=== PATIENT | male | born 1990 | race Caucasian/White ===

== ENCOUNTER 2024-05-14 12:01 | Inpatient (IN) | payer OTHER ==
[2024-05-14 12:23] VITALS: BMI 25.8
[2024-05-14] MEDS ORDERED: POLYETHYLENE GLYCOL (HEALTHYLAX) 3350 17 GM PACKET PO PRN (12:50)
[2024-05-14] MEDS ORDERED: ACETAMINOPHEN 325 MG TABLET (FP) PO PRN (12:50)
[2024-05-14] MEDS ORDERED: MAGNESIUM HYDROX 2400MG/30ML ORAL SUSPENSION 30 ML CUP PO PRN (12:50)
[2024-05-14] MEDS ORDERED: LOPERAMIDE HCL 2 MG CAPSULE PO PRN (12:50)
[2024-05-14] MEDS ORDERED: BENZOCAINE/MENTHOL (CHLORASEPTIC ) LOZENGE MM PRN (12:50)
[2024-05-14] MEDS ORDERED: NALOXONE HCL 0.4 MG/ML VIAL IM PRN (12:50)
[2024-05-14] MEDS ORDERED: BENZONATATE 200 MG CAPSULE PO PRN (12:50)
[2024-05-14] MEDS ORDERED: guaiFENesin 600 MG TABLET.ER (FP) PO PRN (12:50)
[2024-05-14] MEDS ORDERED: NALOXONE (NARCAN) HCL 4 MG/0.1 ML SPRAY NS PRN (12:50)
[2024-05-14] MEDS ORDERED: DOCUSATE SODIUM 100 MG CAPSULE (FP) PO PRN (12:50)
[2024-05-14] MEDS ORDERED: MAG HYDROX/AL HYDROX/SIMETH 30 ML UNIT-DOSE CUP PO PRN (12:50)
[2024-05-14] MEDS: MELATONIN 5 MG TABLETS PO SCH (21:37)
[2024-05-14] MEDS: THIAMINE 100 MG TABLET PO SCH (21:37)
[2024-05-15] MEDS: methaDONE 80 MG, methaDONE 10 MG PO SCH (07:10)
[2024-05-15] MEDS: methaDONE HCL 10 MG TABLET PO SCH (07:13)
[2024-05-15] MEDS: NICOTINE 7 MG/24 HOURS TOPICAL PATCH TD SCH (09:38)
[2024-05-15] MEDS: PRENATAL VITAMINS W/ FOLIC ACID TABLET (FP) PO SCH (09:38)
[2024-05-15 11:53] LABS: HEMATOCRIT 40.4 % (35.4-49); HEMOGLOBIN 13.4 GM/dL (11.7-16.9); MCH 27.5 pg (25.7-33.7); MCHC 33.3 g/dl (32.0-35.9); MEAN CELL VOLUME 82.5 fl (80-96); MEAN PLT VOLUME 7.5 fl (7.5-11.1); PLATELET COUNT 398 10^3/uL (134-434); RBC 4.89 M/mm3 (4.00-5.60); RDW 14.3 % (11.9-15.9); WHITE BLOOD COUNT 6.7 K/mm3 (4.0-10.0)
[2024-05-15 11:55] LABS: POTASSIUM 4.6 mmol/L (3.5-5.1)
[2024-05-15 12:01] LABS: ALBUMIN 3.2 g/dl (3.4-5.0); BLOOD UREA NITROGEN 13.7 mg/dL (7-18)
[2024-05-15 12:06] LABS: BILIRUBIN,TOTAL 0.3 mg/dL (0.2-1); TOT PROT 6.6 g/dl (6.4-8.2)
[2024-05-15] MEDS: GABAPENTIN 100 MG CAPSULE PO SCH (15:26)
[2024-05-15 16:22] LABS: EPI CELLS 30 /uL (0-25.1); HYALINE CASTS 3 /uL (0-3.1); URINE APPEARANCE CLEAR; URINE BACTERIA 389 /uL (0-1359); URINE BILIRUBIN NEGATIVE (NEGATIVE); URINE COLOR YELLOW; URINE GLUCOSE (UA) NEGATIVE (NEGATIVE); URINE KETONE NEGATIVE (NEGATIVE); URINE LEUK ESTERASE 1+ (NEGATIVE); URINE NITRITE NEGATIVE (NEGATIVE); URINE PROTEIN NEGATIVE (NEGATIVE); URINE RBC 4 /uL (0-23.9); URINE WBC 31 /uL (0-25.8)
[2024-05-15] MEDS: traZODone HCL 50 MG TABLET (FP) PO SCH (21:17)
[2024-05-15 23:45] LABS: SYPHILIS W/ RPR CONF NON-REACTIVE (NONREACTIVE)
[2024-05-16] MEDS: NICOTINE POLACRILEX 2 MG GUM BUC PRN (14:00)
[2024-05-16] MEDS ORDERED: ALBUTEROL SO4 HFA INHALER IH PRN (16:21)
[2024-05-16] MEDS: BACLOFEN 10 MG TABLET (FP) PO SCH (21:17)
[2024-05-16] MEDS: BUDESONIDE/FORMETEROL FUMARATE 160/4.5 mcg INHALER IH SCH (21:55)
[2024-05-17] MEDS: BACLOFEN 10 MG TABLET (FP) PO SCH (13:43)
[2024-05-19] MEDS ORDERED: methaDONE HCL 40 MG DISPERSABLE TABLET PO SCH (11:08)
[2024-05-19] MEDS: CLINDAMYCIN PHOSPHATE 1% TOPICAL GEL 30 GM TUBE TP SCH (11:42)
[2024-05-20] MEDS: hydrOXYzine PAMOATE 25 MG CAPSULE (FP) PO PRN (10:25)
[2024-05-20] MEDS: QUEtiapine FUMARATE 50 MG TABLET PO SCH (21:12)
[2024-05-22] MEDS: BUDESONIDE/FORMETEROL FUMARATE 160/4.5 mcg INHALER IH SCH (12:09)
[2024-05-22] MEDS: NICOTINE POLACRILEX 4 MG GUM BUC PRN (12:49)
[2024-05-22] MEDS: BACLOFEN 10 MG TABLET (FP) PO SCH (13:22)
[2024-05-22] MEDS: AMOX TR/POT CLAV 500MG/125MG TABLETS (FP) PO SCH (16:35)
[2024-05-22] MEDS: QUEtiapine FUMARATE 100 MG TABLET (FP) PO SCH (21:22)
[2024-05-23] MEDS: NICOTINE 21 MG/24 HOURS TOPICAL PATCH TD SCH (10:42)
[2024-05-23] MEDS: BACLOFEN 10 MG TABLET (FP) PO SCH (10:43)
[2024-05-24] MEDS: IBUPROFEN 400 MG TABLET (FP) PO PRN (06:32)
[2024-05-24] MEDS: IBUPROFEN 600 MG TABLET (FP) PO PRN (11:34)
[2024-05-27] MEDS: GABAPENTIN 300 MG CAPSULE PO SCH (14:09)
[2024-05-27] MEDS: QUEtiapine FUMARATE 50 MG TABLET PO SCH (21:32)
[2024-05-28] MEDS: NICOTINE POLACRILEX 2 MG LOZENGE BC PRN (06:27)
[2024-05-29] MEDS: ALBUTEROL SO4 HFA INHALER IH PRN (06:48)
[2024-06-09 06:36] VITALS: RESP 20
[2024-06-11 06:38] VITALS: BP 132/90; PULSE 97; TEMP 97.3
== END 2024-06-11 08:57 | disposition home or self-care (01) | DRG 772 ==
LOC: YASAS 12:01 → Y3NR 13:38 → Y3E 05-15 13:07
PROVIDERS: ADMIT Allergy & Immunology; ATTEND Psychiatry & Neurology Pain Medicine
PROC: HZ42ZZZ Group Counseling for Substance Abuse Treatment, Cognitive-Behavioral (ICD-10-PCS; principal; 2024-05-14)
PROC: 0H9LXZZ Drainage of Left Lower Leg Skin, External Approach (ICD-10-PCS; 2024-05-22)
DX: F14.20 Cocaine dependence, uncomplicated (principal); F11.20 Opioid dependence, uncomplicated; F15.20 Other stimulant dependence, uncomplicated; F12.20 Cannabis dependence, uncomplicated; F17.210 Nicotine dependence, cigarettes, uncomplicated; F19.982 Other psychoactive substance use, unspecified with psychoactive substance-induced sleep disorder; F19.980 Other psychoactive substance use, unspecified with psychoactive substance-induced anxiety disorder; F19.94 Other psychoactive substance use, unspecified with psychoactive substance-induced mood disorder; J45.909 Unspecified asthma, uncomplicated; G47.00 Insomnia, unspecified; L02.416 Cutaneous abscess of left lower limb; Z56.0 Unemployment, unspecified; Z59.02 Unsheltered homelessness
CPT/HCPCS: 36415; 80053; 80305; 80307; 81003; 85027; 86780; 86803; 87811; 93005; 93010; J0475

== ENCOUNTER 2025-04-08 08:59 | Inpatient (IN) | payer OTHER ==
[2025-04-08 09:26] VITALS: BMI 40.1
[2025-04-08] MEDS ORDERED: NALOXONE (NARCAN) HCL 4 MG/0.1 ML SPRAY NS PRN (09:55)
[2025-04-08] MEDS ORDERED: BISACODYL 5 MG TABLET.DR (FP) PO PRN (09:55)
[2025-04-08] MEDS ORDERED: BENZOCAINE/MENTHOL (CHLORASEPTIC ) LOZENGE MM PRN (09:55)
[2025-04-08] MEDS ORDERED: guaiFENesin 600 MG TABLET.ER (FP) PO PRN (09:55)
[2025-04-08] MEDS ORDERED: MAGNESIUM HYDROX 2400MG/30ML ORAL SUSPENSION 30 ML CUP PO PRN (09:55)
[2025-04-08] MEDS ORDERED: MAG HYDROX/AL HYDROX/SIMETH 30 ML UNIT-DOSE CUP PO PRN (09:55)
[2025-04-08] MEDS ORDERED: NICOTINE POLACRILEX 2 MG LOZENGE BC PRN (09:55)
[2025-04-08] MEDS ORDERED: POLYETHYLENE GLYCOL (HEALTHYLAX) 3350 17 GM PACKET PO PRN (09:55)
[2025-04-08] MEDS ORDERED: LOPERAMIDE HCL 2 MG CAPSULE PO PRN (09:55)
[2025-04-08] MEDS ORDERED: DOCUSATE SODIUM 100 MG CAPSULE (FP) PO PRN (09:55)
[2025-04-08] MEDS ORDERED: PRENATAL VITAMINS W/ FOLIC ACID TABLET (FP) PO ONE (10:26)
[2025-04-08] MEDS ORDERED: NICOTINE 14 MG/24 HOURS TOPICAL PATCH TD ONE (10:26)
[2025-04-08] MEDS: PRENATAL VITAMINS W/ FOLIC ACID TABLET (FP) PO SCH (10:28)
[2025-04-08] MEDS: NICOTINE 14 MG/24 HOURS TOPICAL PATCH TD SCH (10:28)
[2025-04-08] MEDS: BENZONATATE 200 MG CAPSULE PO PRN (16:16)
[2025-04-08] MEDS: metFORMIN HCL 500 MG TABLET (FP) PO SCH (17:06)
[2025-04-08] MEDS: ALBUTEROL SO4 HFA INHALER IH PRN (17:08)
[2025-04-08] MEDS: NICOTINE POLACRILEX 2 MG GUM BUC PRN (18:47)
[2025-04-08 19:19] LABS: EPI CELLS >36 /uL (0-25.1); HYALINE CASTS 4 /uL (0-3.1); URINE APPEARANCE CLEAR; URINE BACTERIA 87 /uL (0-1359); URINE BILIRUBIN NEGATIVE (NEGATIVE); URINE COLOR YELLOW; URINE GLUCOSE (UA) NEGATIVE (NEGATIVE); URINE KETONE TRACE (NEGATIVE); URINE LEUK ESTERASE 1+ (NEGATIVE); URINE NITRITE NEGATIVE (NEGATIVE); URINE PROTEIN TRACE (NEGATIVE); URINE RBC 9 /uL (0-23.9); URINE UROBILINOGEN 1.0 mg/dL (0.2-1.0); URINE WBC 201 /uL (0-25.8)
[2025-04-08] MEDS: QUEtiapine FUMARATE 100 MG TABLET (FP) PO SCH (21:37)
[2025-04-08] MEDS: MIRTAZAPINE 15 MG TABLET (FP) PO SCH (21:37)
[2025-04-08] MEDS: THIAMINE 100 MG TABLET PO SCH (21:37)
[2025-04-08] MEDS: MELATONIN 5 MG TABLETS PO SCH (21:37)
[2025-04-09] MEDS: CHOLECALCIFEROL (VIT D3) 400 UNIT (10 MCG) TABLET PO SCH (10:41)
[2025-04-09 12:12] LABS: MCHC 32.5 g/dl (32.3-36.5); MEAN CELL VOLUME 83.5 fl (79.0-92.2); MEAN PLT VOLUME 10.7 fl (9.4-12.4); RDW 13.4 % (12.0-15.6)
[2025-04-09 12:32] LABS: GLUCOSE,RANDOM 115.0 mg/dL (74-106)
[2025-04-09 12:33] LABS: CO2 24.0 mmol/L (21-32)
[2025-04-09 12:35] LABS: CREATININE 0.7 mg/dL (0.55-1.3); SGOT/AST 40.0 U/L (15-37)
[2025-04-09 12:37] LABS: TOT PROT 6.0 g/dl (6.4-8.2)
[2025-04-09 12:38] LABS: ALK PHOS 73.0 U/L (45-117)
[2025-04-09 12:46] LABS: SGPT/ALT 105.0 U/L (13-61)
[2025-04-09] MEDS ORDERED: BUDESONIDE/FORMETEROL FUMARATE 160/4.5 mcg INHALER IH PRN (13:29)
[2025-04-09] MEDS: BACLOFEN 10 MG TABLET (FP) PO SCH (21:44)
[2025-04-10] MEDS: NICOTINE 21 MG/24 HOURS TOPICAL PATCH TD SCH (10:00)
[2025-04-15] MEDS: hydrOXYzine PAMOATE 25 MG CAPSULE (FP) PO PRN (15:51)
[2025-04-19] MEDS: BUDESONIDE/FORMETEROL FUMARATE 160/4.5 mcg INHALER IH SCH (14:00)
[2025-04-19 20:04] LABS: EPI CELLS >36 /uL (0-25.1); HYALINE CASTS 2 /uL (0-3.1); URINE APPEARANCE CLEAR; URINE BACTERIA 87 /uL (0-1359); URINE BILIRUBIN NEGATIVE (NEGATIVE); URINE COLOR YELLOW; URINE GLUCOSE (UA) NEGATIVE (NEGATIVE); URINE KETONE TRACE (NEGATIVE); URINE LEUK ESTERASE 2+ (NEGATIVE); URINE NITRITE NEGATIVE (NEGATIVE); URINE PROTEIN NEGATIVE (NEGATIVE); URINE RBC 15 /uL (0-23.9); URINE UROBILINOGEN 1.0 mg/dL (0.2-1.0); URINE WBC 89 /uL (0-25.8)
[2025-04-20] MEDS ORDERED: ALBUTEROL SO4 HFA INHALER IH PRN (11:32)
[2025-04-20] MEDS: ALBUTEROL SO4 HFA INHALER IH SCH (11:32)
[2025-04-20] MEDS: BUDESONIDE/FORMETEROL FUMARATE 160/4.5 mcg INHALER IH SCH (11:32)
[2025-04-20 17:19] LABS: SGPT/ALT 331 U/L (13-61)
[2025-04-20 17:20] LABS: SGOT/AST 117 U/L (15-37)
[2025-04-22] MEDS: IBUPROFEN 600 MG TABLET (FP) PO PRN (13:24)
[2025-04-22] MEDS: ACETAMINOPHEN 325 MG TABLET (FP) PO PRN (16:49)
[2025-04-22] MEDS: IBUPROFEN 400 MG TABLET (FP) PO PRN (21:16)
[2025-04-24] MEDS: AMOX TR/POT CLAV 875MG/125MG TABLETS (FP) PO SCH (12:07)
[2025-04-24] MEDS: CLINDAMYCIN PHOSPHATE 1% TOPICAL GEL 30 GM TUBE TP SCH (12:07)
[2025-04-27] MEDS ORDERED: AMOX TR/POT CLAV 875MG/125MG TABLETS (FP) PO SCH ×2 (11:04→17:30)
[2025-04-27] MEDS: AMOX TR/POT CLAV 875MG/125MG TABLETS (FP) PO SCH (16:51)
[2025-04-28 06:54] VITALS: RESP 18
[2025-04-30 07:00] VITALS: BP 107/68; PULSE 80; TEMP 97.1
== END 2025-04-30 10:10 | disposition home or self-care (01) | DRG 772 ==
LOC: YASAS 08:59 → Y3NR 10:21 → Y5N 04-09 11:39
PROVIDERS: ADMIT Psychiatry & Neurology Pain Medicine; ATTEND Psychiatry & Neurology Pain Medicine
PROC: HZ42ZZZ Group Counseling for Substance Abuse Treatment, Cognitive-Behavioral (ICD-10-PCS; principal; 2025-04-08)
DX: F14.20 Cocaine dependence, uncomplicated (principal); F11.20 Opioid dependence, uncomplicated; F12.20 Cannabis dependence, uncomplicated; F17.210 Nicotine dependence, cigarettes, uncomplicated; F19.282 Other psychoactive substance dependence with psychoactive substance-induced sleep disorder; F19.280 Other psychoactive substance dependence with psychoactive substance-induced anxiety disorder; F19.24 Other psychoactive substance dependence with psychoactive substance-induced mood disorder; L03.116 Cellulitis of left lower limb; G47.00 Insomnia, unspecified; J45.909 Unspecified asthma, uncomplicated; E11.9 Type 2 diabetes mellitus without complications; Z79.84 Long term (current) use of oral hypoglycemic drugs; R79.89 Other specified abnormal findings of blood chemistry; Z59.02 Unsheltered homelessness
CPT/HCPCS: 36415; 80053; 81003; 82435; 82962; 84450; 84460; 85027; 86780; 93005; 93010; J0475